=== PATIENT | female | born 1985 | race Caucasian/White ===

== ENCOUNTER 2018-04-17 09:18 | Outpatient (CLI) | payer BC ==
--- NOTE | 2018-04-17 11:07 | RAD ---
LUMBAR SPINE SERIES 2 VIEWS: HISTORY: Back pain. FINDINGS: Minimal scoliotic change of the spine. The vertebral bodies are normal in height. Disk spaces are w ell preserved. Pedicles appear intact. IMPRESSION: No acute findings. Subtle scoliosis. POS: [facility]
== END 2018-04-17 09:19 | disposition home or self-care (01) ==
LOC: BICRAD 09:18
PROVIDERS: ATTEND Internal Medicine Rheumatology
DX: M54.89 Other dorsalgia (principal)
CPT/HCPCS: 72100